=== PATIENT | male | born 1970 | race African-American/Black ===

== ENCOUNTER 2021-09-11 18:48 | Emergency (ER) | payer OTHER ==
[~2021-09-11] VITALS: Ht 182.9 cm; Wt 100.1 kg
[2021-09-11 19:06] VITALS: BP 169/85
== END 2021-09-12 02:35 | disposition left against medical advice (07) ==
LOC: ER 18:48
DX: Z53.21 Procedure and treatment not carried out due to patient leaving prior to being seen by health care provider (principal)